=== PATIENT | male | born 2000 | race Caucasian/White ===

== ENCOUNTER 2023-03-04 22:09 | Emergency (ER) | payer BC ==
[2023-03-04] MEDS ORDERED: Alum Hydrox/Mag Hydrox/Simeth 30 ML, Lidocaine 2% 15 ML PO ONE ×4 (22:15→22:46)
== END 2023-03-04 22:57 | disposition home or self-care (01) ==
LOC: KA.ED 22:09
DX: R12 Heartburn (principal)
CPT/HCPCS: 99283; A9270-GY

== ENCOUNTER 2023-03-26 09:47 | Emergency (ER) | payer BC ==
[2023-03-26] MEDS ORDERED: Sodium Chloride 0.9% 10 ML Syringe FLUSH PRN (09:56)
[2023-03-26] MEDS ORDERED: Ondansetron 4 MG/2 ML SDV IVPUSH ONE (09:57)
[2023-03-26] MEDS ORDERED: Ketorolac 30 MG/ML SDV IVPUSH ONE (09:57)
[2023-03-26] MEDS ORDERED: Sodium Chloride 0.9% 1,000 ML IV ONE (09:58)
[2023-03-26 10:18] LABS: BASOPHILS ABSOLUTE AUTO 0.04 10^3/uL (0.00-0.10); BASOPHILS PERCENT AUTO 0.3 % (0.0-1.0); EOSINOPHILS PERCENT AUTO 1.4 % (1.0-3.0); HEMATOCRIT 45.8 % (40.0-52.0); HEMOGLOBIN 15.5 g/dL (13.0-17.0); IMMATURE GRAN ABSOLUTE AUTO 0.04 10^3/uL (0.00-0.50); IMMATURE GRAN PERCENT AUTO 0.3 % (0.0-5.0); LYMPHOCYTES ABSOLUTE AUTO 1.94 10^3/uL (1.00-4.00); LYMPHOCYTES PERCENT AUTO 13.9 % (20.0-40.0); MEAN CORPUSCULAR HEMOGLOBIN 31.1 pg (27.0-31.0); MEAN CORPUSCULAR HGB CONC 33.8 g/dL (32.0-36.0); MEAN PLATELET VOLUME 10.6 fL (7.4-10.4); MONOCYTES ABSOLUTE AUTO 0.67 10^3/uL (0.10-0.80); MONOCYTES PERCENT AUTO 4.8 % (2.0-8.0); NEUTROPHILS ABSOLUTE AUTO 11.06 10^3/uL (2.50-7.00); NEUTROPHILS PERCENT AUTO 79.3 % (50.0-70.0); PLATELET COUNT,PLT 332 10^3/uL (150-400); RED BLOOD CELL COUNT 4.98 10^6/uL (4.50-6.00); RED CELL DISTRIBUTION WIDTH 13.4 % (11.5-14.5); WHITE BLOOD CELL COUNT,WBC 13.95 10^3/uL (5.00-10.00)
[2023-03-26 10:33] LABS: ALANINE AMINOTRANSFERASE,ALT 30 U/L (14-63); ALBUMIN 4.29 g/dL (3.40-5.00); ALKALINE PHOSPHATASE 78 U/L (46-116); ANION GAP 14.1 mmol/L (5-15); ASPARTATE AMNIOTRANSFERASE,AST 24 U/L (15-37); BILIRUBIN TOTAL 0.9 mg/dL (0.2-1.0); BLOOD UREA NITROGEN,BUN 10 mg/dL (7-18); CALCIUM 8.8 mg/dL (8.7-10.3); CARBON DIOXIDE,CO2 28.6 mmol/L (21.0-32.0); CHLORIDE,CL 104 mmol/L (98-107); CREATININE 0.76 mg/dL (0.51-1.17); ESTIMATED GFR 129 mL/min (>=60); GLUCOSE RANDOM 120 mg/dL (70-140); LIPASE 75 U/L (73-393); POTASSIUM,K 3.7 mmol/L (3.5-5.1); PROTEIN TOTAL,TP 7.5 g/dL (6.4-8.2); SODIUM,NA 143 mmol/L (136-145)
[2023-03-26] MEDS ORDERED: Famotidine 20 MG Tab PO ONE (10:49)
== END 2023-03-26 11:43 | disposition home or self-care (01) ==
LOC: KA.ED 09:47
DX: K29.00 Acute gastritis without bleeding (principal)
CPT/HCPCS: 80053; 83690; 85025; 96361; 96374; 96375; 99283; 99284-25; A9270-GY; J1885; J2405; J3490; J7030

== ENCOUNTER 2023-08-23 02:01 | Emergency (ER) | payer BC ==
[2023-08-23] MEDS ORDERED: Sodium Chloride 0.9% 1,000 ML IV ONE (02:15)
[2023-08-23] MEDS ORDERED: Ondansetron 4 MG/2 ML SDV IVPUSH ONE (02:15)
[2023-08-23] MEDS ORDERED: Ketorolac 30 MG/ML SDV IVPUSH ONE (02:46)
[2023-08-23] MEDS ORDERED: Meclizine 25 MG Tab PO ONE (02:46)
[2023-08-23 02:47] LABS: BASOPHILS ABSOLUTE AUTO 0.01 10^3/uL (0.00-0.10); BASOPHILS PERCENT AUTO 0.1 % (0.0-1.0); EOSINOPHILS ABSOLUTE AUTO 0.08 10^3/uL (0.10-0.30); HEMATOCRIT 42.6 % (40.0-52.0); HEMOGLOBIN 14.8 g/dL (13.0-17.0); IMMATURE GRAN ABSOLUTE AUTO 0.02 10^3/uL (0.00-0.50); IMMATURE GRAN PERCENT AUTO 0.3 % (0.0-5.0); LYMPHOCYTES ABSOLUTE AUTO 0.44 10^3/uL (1.00-4.00); LYMPHOCYTES PERCENT AUTO 5.6 % (20.0-40.0); MEAN CORPUSCULAR HEMOGLOBIN 31.2 pg (27.0-31.0); MEAN CORPUSCULAR HGB CONC 34.7 g/dL (32.0-36.0); MEAN CORPUSCULAR VOLUME 89.9 fL (82.0-92.0); MEAN PLATELET VOLUME 10.3 fL (7.4-10.4); MONOCYTES ABSOLUTE AUTO 0.74 10^3/uL (0.10-0.80); MONOCYTES PERCENT AUTO 9.5 % (2.0-8.0); NEUTROPHILS ABSOLUTE AUTO 6.54 10^3/uL (2.50-7.00); NEUTROPHILS PERCENT AUTO 83.5 % (50.0-70.0); PLATELET COUNT,PLT 285 10^3/uL (150-400); RED BLOOD CELL COUNT 4.74 10^6/uL (4.50-6.00); RED CELL DISTRIBUTION WIDTH 12.4 % (11.5-14.5); WHITE BLOOD CELL COUNT,WBC 7.83 10^3/uL (5.00-10.00)
[2023-08-23 02:57] LABS: ALBUMIN 4.6 g/dL (3.40-5.00); ANION GAP 14.2 mmol/L (5-15); BILIRUBIN TOTAL 1.2 mg/dL (0.2-1.0); CARBON DIOXIDE,CO2 27.4 mmol/L (21.0-32.0); CREATININE 0.96 mg/dL (0.51-1.17); EST CRCL DRUG DOSING (CG) 102.32 mL/min; POTASSIUM,K 3.6 mmol/L (3.5-5.1); PROTEIN TOTAL,TP 7.8 g/dL (6.4-8.2)
[2023-08-23 03:19] LABS: INFLUENZA A NAA NEGATIVE (NEGATIVE); INFLUENZA B NAA NEGATIVE (NEGATIVE)
[2023-08-23 03:20] LABS: CORONAVIRUS COVID-19 NAA POSITIVE (NEGATIVE)
== END 2023-08-23 03:45 | disposition home or self-care (01) ==
LOC: KA.ED 02:01
DX: U07.1 COVID-19 (principal); H83.09 Labyrinthitis, unspecified ear; Z87.891 Personal history of nicotine dependence
CPT/HCPCS: 0240U; 80053; 85025; 93005; 93010; 96361; 96374; 96375; 99283-25; 99284; A9270-GY; J1885; J2405; J7030

== ENCOUNTER 2023-11-02 22:27 | Emergency (ER) | payer BC ==
[2023-11-02] MEDS ORDERED: Sodium Chloride 0.9% 10 ML Syringe FLUSH PRN (22:32)
[2023-11-02] MEDS ORDERED: Sodium Chloride 0.9% 1,000 ML IV ONE (22:34)
[2023-11-02 23:02] LABS: BASOPHILS ABSOLUTE AUTO 0.04 10^3/uL (0.00-0.10); BASOPHILS PERCENT AUTO 0.4 % (0.0-1.0); EOSINOPHILS ABSOLUTE AUTO 0.08 10^3/uL (0.10-0.30); EOSINOPHILS PERCENT AUTO 0.9 % (1.0-3.0); HEMATOCRIT 47.2 % (40.0-52.0); HEMOGLOBIN 16.4 g/dL (13.0-17.0); IMMATURE GRAN ABSOLUTE AUTO 0.03 10^3/uL (0.00-0.50); IMMATURE GRAN PERCENT AUTO 0.3 % (0.0-5.0); LYMPHOCYTES ABSOLUTE AUTO 1.74 10^3/uL (1.00-4.00); LYMPHOCYTES PERCENT AUTO 18.6 % (20.0-40.0); MEAN CORPUSCULAR HGB CONC 34.7 g/dL (32.0-36.0); MEAN CORPUSCULAR VOLUME 89.2 fL (82.0-92.0); MEAN PLATELET VOLUME 10.1 fL (7.4-10.4); MONOCYTES ABSOLUTE AUTO 0.49 10^3/uL (0.10-0.80); MONOCYTES PERCENT AUTO 5.3 % (2.0-8.0); NEUTROPHILS ABSOLUTE AUTO 6.95 10^3/uL (2.50-7.00); NEUTROPHILS PERCENT AUTO 74.5 % (50.0-70.0); PLATELET COUNT,PLT 395 10^3/uL (150-400); RED BLOOD CELL COUNT 5.29 10^6/uL (4.50-6.00); RED CELL DISTRIBUTION WIDTH 12.6 % (11.5-14.5); WHITE BLOOD CELL COUNT,WBC 9.33 10^3/uL (5.00-10.00)
[2023-11-02 23:17] LABS: ALANINE AMINOTRANSFERASE,ALT 26 U/L (14-63); ALKALINE PHOSPHATASE 67 U/L (46-116); ANION GAP 17.9 mmol/L (5-15); ASPARTATE AMNIOTRANSFERASE,AST 23 U/L (15-37); BILIRUBIN TOTAL 0.7 mg/dL (0.2-1.0); BLOOD UREA NITROGEN,BUN 6 mg/dL (7-18); CARBON DIOXIDE,CO2 28.1 mmol/L (21.0-32.0); CHLORIDE,CL 99 mmol/L (98-107); CREATININE 0.85 mg/dL (0.51-1.17); EST CRCL DRUG DOSING (CG) 119.89 mL/min; ETHANOL BLOOD MEDICAL 82 mg/dL (NOT DETECTED); GLUCOSE RANDOM 102 mg/dL (70-140); PROTEIN TOTAL,TP 8.4 g/dL (6.4-8.2); SODIUM,NA 141 mmol/L (136-145)
[2023-11-02 23:18] LABS: ESTIMATED GFR 124 mL/min (>=60)
[2023-11-02 23:20] LABS: ACETAMINOPHEN < 0.0 ug/mL (10.0-30.0)
== END 2023-11-02 23:45 | disposition home or self-care (01) ==
LOC: KA.ED 22:27
DX: F10.929 Alcohol use, unspecified with intoxication, unspecified (principal); R12 Heartburn; F17.210 Nicotine dependence, cigarettes, uncomplicated; Z79.899 Other long term (current) drug therapy
CPT/HCPCS: 36415; 80053; 80143; 80307; 85025; 99284